=== PATIENT | male | born 1955 | race Caucasian/White ===

== ENCOUNTER 2020-04-08 10:35 | Emergency (ER) | payer SELFPAY ==
[~2020-04-08] VITALS: Ht 162.6 cm; Wt 62.1 kg
--- NOTE | 2020-04-08 10:56 | NUR ---
Pt ambulated to ER bed 12.
[2020-04-08 10:59] VITALS: BP 136/71
[2020-04-08] MEDS ORDERED: MORPHINE SULFATE 4 MG/ML SYR IVP ONE (11:00)
--- NOTE | 2020-04-08 11:06 | NUR ---
64 Y/O MALE C/O ABDOMINAL PAIN X 4 WEEKS WITH NEW ONSET OF SHARP 10/10 PAIN THIS MORNING 9 AM. PT STATES HE HAD AN APPT WITH PCP AND WAS WAITING ON RESULTS. PT STATES +N/V, DENIES FEVER/CHILLS. ABDOMEN IS SOFT, ROUND, NON-TENDER TO PALPATION, BOWEL SOUNDS X4 ACTIVE. LAST BM 04/07/20. DENIES PMH NKA
--- NOTE | 2020-04-08 11:16 | NUR ---
CT consent obtained and placed in pt chart.
--- NOTE | 2020-04-08 11:24 | NUR ---
IV established to left AC 20G, good blood return noted. Pt tolerated procedure well.
[2020-04-08 11:33] LABS: BASOPHILS # (AUTO) 0.1 K/uL (0.00-0.22); BASOPHILS % (AUTO) 0.7 % (0.0-2.0); EOSINOPHILS # (AUTO) 0.3 K/uL (0-0.4); EOSINOPHILS % (AUTO) 3.2 % (0.0-4.0); HEMATOCRIT 25.2 % (36-52); HEMOGLOBIN 7.9 g/dL (12.0-18.0); LYMPHOCYTES % (AUTO) 9.7 % (20.5-51.1); MEAN CORPUSCULAR HEMOGLOBIN 21 pg (27-31); MEAN CORPUSCULAR HGB CONC 32 g/dL (33-37); MEAN CORPUSCULAR VOLUME 66.7 fL (80-94); MONOCYTES # (AUTO) 0.4 K/uL (0.8-1.0); MONOCYTES % (AUTO) 3.6 % (1.7-9.3); NEUTROPHILS # (AUTO) 8.3 K/uL (1.8-7.7); NEUTROPHILS % (AUTO) 82.8 % (42.2-75.2); PLATELET COUNT (AUTO) 558 K/uL (140-450); RED BLOOD CELL COUNT(AUTO) 3.77 MIL/uL (4.20-6.10)
[2020-04-08 11:35] LABS: ALBUMIN 3.5 g/dL (3.4-5.0); ANION GAP 10.4 (8-16); CARBON DIOXIDE 28.7 mmol/L (21-32); CREATININE 0.8 mg/dL (0.6-1.3); POTASSIUM 4.1 mmol/L (3.5-5.1); TOTAL BILIRUBIN 0.3 mg/dL (0.0-1.0)
--- NOTE | 2020-04-08 12:31 | NUR ---
Pt taken to CT via W/C.
--- NOTE | 2020-04-08 12:41 | NUR ---
Pt brought back from CT via W/C.
--- NOTE | 2020-04-08 12:56 | NUR ---
EMT AT BEDSIDE FOR EKG
[2020-04-08 13:40] VITALS: BP 122/69
--- NOTE | 2020-04-08 13:40 | NUR ---
Patient discharged with v/s stable. Written and verbal after care instructions given and explained. Patient verbalized understanding. Ambulatory with steady gait. All questions addressed prior to discharge. Advised to follow up with PMD.
== END 2020-04-08 13:40 | disposition home or self-care (01) ==
LOC: MED 10:35
DX: G89.29 Other chronic pain (principal); R10.9 Unspecified abdominal pain
CPT/HCPCS: 36415; 74177; 80053; 83690; 85025; 93005; 96374; 99285; J2270; Q9967

== ENCOUNTER 2020-07-18 10:56 | Emergency (ER) | payer SELFPAY ==
[~2020-07-18] VITALS: Ht 170.2 cm; Wt 60.3 kg
[2020-07-18 11:04] VITALS: BP 125/74
[2020-07-18] MEDS ORDERED: ASPIRIN 325 MG TAB PO ONE (11:55)
[2020-07-18 12:12] LABS: ANION GAP 10.4 (8-16); CREATININE 0.8 mg/dL (0.6-1.3); POTASSIUM 4.4 mmol/L (3.5-5.1)
[2020-07-18 12:14] LABS: BASOPHILS # (AUTO) 0.1 K/uL (0.00-0.22); BASOPHILS % (AUTO) 1.6 % (0.0-2.0); EOSINOPHILS % (AUTO) 17.8 % (0.0-4.0); HEMATOCRIT 26.9 % (36-52); HEMOGLOBIN 8.3 g/dL (12.0-18.0); LYMPHOCYTES # (AUTO) 1.2 K/uL (2.0-11.5); LYMPHOCYTES % (AUTO) 20.3 % (20.5-51.1); MEAN CORPUSCULAR HEMOGLOBIN 21 pg (27-31); MEAN CORPUSCULAR HGB CONC 31 g/dL (33-37); MEAN CORPUSCULAR VOLUME 68.4 fL (80-94); MONOCYTES # (AUTO) 0.3 K/uL (0.8-1.0); MONOCYTES % (AUTO) 5.8 % (1.7-9.3); NEUTROPHILS # (AUTO) 3.1 K/uL (1.8-7.7); NEUTROPHILS % (AUTO) 54.5 % (42.2-75.2); PLATELET COUNT (AUTO) 518 K/uL (140-450); RED BLOOD CELL COUNT(AUTO) 3.93 MIL/uL (4.20-6.10); RED CELL DISTRIBUTION WIDTH 19.2 % (11.6-13.7); WHITE BLOOD COUNT (AUTO) 5.7 K/uL (4.8-10.8)
[2020-07-18 12:17] LABS: ALBUMIN 3.4 g/dL (3.4-5.0); TOTAL BILIRUBIN 0.2 mg/dL (0.0-1.0)
[2020-07-18 13:22] VITALS: BP 119/70
== END 2020-07-18 13:22 | disposition home or self-care (01) ==
LOC: MED 10:56
DX: R07.9 Chest pain, unspecified (principal); F17.210 Nicotine dependence, cigarettes, uncomplicated
CPT/HCPCS: 36415; 71045; 80053; 83690; 84484; 85025; 93005; 99285